=== PATIENT | male | born 1950 | race Two or more races ===

== ENCOUNTER 2018-03-25 19:03 | Emergency (ER) | payer OTHER ==
[~2018-03-25] VITALS: Ht 185.4 cm; Wt 84.8 kg
[~2018-03-25 19:03] MED LIST: DIOVAN320 MG
[2018-03-25] MEDS ORDERED: METFORMIN HCL500 MG (19:34)
== END 2018-03-25 23:11 | disposition home or self-care (01) ==
LOC: ER
DX: B34.9 Viral infection, unspecified (principal)

== ENCOUNTER 2019-06-03 10:27 | Outpatient (CLI) | payer OTHER ==
[~2019-06-03 10:27] MED LIST changes: +METFORMIN HCL500 MG
== END 2019-06-03 15:00 | disposition home or self-care (01) ==
LOC: TOM 10:27
DX: R10.84 Generalized abdominal pain (principal)
CPT/HCPCS: 74177; Q9965

== ENCOUNTER 2019-07-01 09:06 | Outpatient (CLI) | payer OTHER | END 2019-07-01 09:19 | disposition home or self-care (01) | LOC: MRI 09:06 | DX: K72.00 Acute and subacute hepatic failure without coma (principal); R10.84 Generalized abdominal pain | CPT/HCPCS: 74181 ==

== ENCOUNTER → 2020-11-03 10:19 | Outpatient (CLI) | payer OTHER | END | disposition home or self-care (01) | LOC: PPH VACUNA 10:19 | PROVIDERS: ATTEND Emergency Medicine Pediatric Emergency Medicine | DX: Z23 Encounter for immunization (principal) ==

== ENCOUNTER 2020-11-23 10:20 | Outpatient (CLI) | payer OTHER | END 2020-11-23 10:22 | disposition home or self-care (01) | LOC: PPH VACUNA 10:20 | PROVIDERS: ATTEND Emergency Medicine Pediatric Emergency Medicine | DX: Z23 Encounter for immunization (principal) ==

== ENCOUNTER 2021-08-01 09:24 | Outpatient (CLI) | payer OTHER | END 2021-08-01 09:29 | disposition home or self-care (01) | LOC: PPH VACUNA 09:24 | PROVIDERS: ATTEND Emergency Medicine Pediatric Emergency Medicine | DX: Z23 Encounter for immunization (principal) ==

== ENCOUNTER 2022-01-23 15:19 | Emergency (ER) | payer OTHER ==
[~2022-01-23] VITALS: Ht 185.4 cm; Wt 83.9 kg
== END 2022-01-23 17:49 | disposition home or self-care (01) ==
LOC: ER 15:19
DX: R07.89 Other chest pain (principal); Z88.8 Allergy status to other drugs, medicaments and biological substances; I10 Essential (primary) hypertension

== ENCOUNTER 2022-02-05 13:52 | Outpatient (CLI) | payer OTHER | END 2022-02-05 13:57 | disposition home or self-care (01) | LOC: RAD 13:52 | PROVIDERS: ATTEND Orthopaedic Surgery | DX: M25.551 Pain in right hip (principal); M17.0 Bilateral primary osteoarthritis of knee; M25.552 Pain in left hip ==

== ENCOUNTER 2022-07-22 12:04 | Outpatient (CLI) | payer OTHER | END 2022-07-22 12:05 | disposition home or self-care (01) | LOC: RAD 12:04 | PROVIDERS: ATTEND Orthopaedic Surgery | DX: M21.751 Unequal limb length (acquired), right femur (principal) ==

== ENCOUNTER 2022-07-23 12:26 | Outpatient (CLI) | payer OTHER | END 2022-07-23 12:33 | disposition home or self-care (01) | LOC: RAD 12:26 | PROVIDERS: ATTEND Orthopaedic Surgery | DX: M25.561 Pain in right knee (principal); M25.562 Pain in left knee ==

== ENCOUNTER 2023-09-23 13:47 | Outpatient (CLI) | payer OTHER | END 2023-09-23 14:46 | disposition home or self-care (01) | LOC: TOM 13:47 | PROVIDERS: ATTEND Internal Medicine Gastroenterology | DX: R10.30 Lower abdominal pain, unspecified (principal) ==

== ENCOUNTER 2025-03-09 11:38 | Outpatient (CLI) | payer OTHER | END 2025-03-09 11:40 | disposition home or self-care (01) | LOC: RAD 11:38 | PROVIDERS: ATTEND Orthopaedic Surgery | DX: M17.0 Bilateral primary osteoarthritis of knee (principal); M25.521 Pain in right elbow ==